=== PATIENT | male | born 1950 | race Caucasian/White ===

== ENCOUNTER 2016-12-02 17:44 | Emergency (ER) | payer MEDICARE, OTHER ==
[2016-12-02] MEDS ORDERED: Midazolam 1 MG/ML 2 ML SDV IVPUSH ONE (19:36)
[2016-12-02] MEDS ORDERED: Iopamidol 755 Mg/ML 100 ML Bottle IV SCH (19:45)
[2016-12-02] MEDS ORDERED: Sodium Chloride 0.9% 80 ML IV SCH (19:45)
[2016-12-02] MEDS ORDERED: diphenhydrAMINE 50 MG/ML SDV IVPUSH ONE ×2 (19:47→23:00)
[2016-12-02] MEDS ORDERED: WATER IV ONE ×2 (19:56)
[2016-12-02] MEDS ORDERED: METHYLPREDNISOLONE SOD SUCC IV ONE ×2 (19:56)
[2016-12-02] MEDS ORDERED: DEXTROSE 5% IV ONE ×2 (19:56)
[2016-12-02] MEDS ORDERED: methylPREDNISolone Sodium Succinate 40 MG/1 ML SDV ONE (20:07)
[2016-12-02] MEDS ORDERED: Dextrose 5% in Water 250 ML ONE (20:07)
[2016-12-02] MEDS ORDERED: methylPREDNISolone Sodium Succinate 40 MG/1 ML SDV IVPUSH ONE (20:19)
[2016-12-02] MEDS: Sodium Chloride 0.9% 10 ML Syringe FLUSH PRN ×2 (20:29→23:35)
[2016-12-03] MEDS ORDERED: Lactated Ringers 1,000 ML IV SCH
[2016-12-03] MEDS ORDERED: Sodium Chloride 0.9% 100 ML IV STA (00:28)
[2016-12-03] MEDS ORDERED: Iopamidol 755 Mg/ML 100 ML Bottle IV STA (00:28)
[2016-12-03] MEDS ORDERED: Aspirin 81 MG Tab.Chew PO ONE (01:09)
[2016-12-03] MEDS ORDERED: Nitroglycerin/D5W 25 MG/250 ML BOTTLE IV SCH (01:15)
[2016-12-03] MEDS: Nitroglycerin/D5W 25 MG/250 ML BOTTLE ONE ×2 (01:20→01:28)
[2016-12-03] MEDS ORDERED: Pantoprazole 40 MG Vial IVPUSH ONE (01:36)
--- NOTE | 2016-12-03 01:55 | EDM.PDOC ---
ED HPI GENERAL MEDICAL PROBLEM - General Chief Complaint: Respiratory Problem Stated Complaint: GASPING FOR AIR, BALANCE IS BAD Time Seen by Provider: 12/02/16 18:30 Source of Information: Reports: Patient History Limitations: Reports: No Limitations - History of Present Illness INITIAL COMMENTS - FREE TEXT/NARRATIVE: History of present illness: [66-year-old male whose presenting with a history of coronary disease cardiac bypass in the past and stenting for 5 years ago at [facility] in [place]. Today he was mowing the lawn and then setting to shortness of breath and went into the garage and he saw Some dogs running around in the garage but there weren't any and he was aware of this so he was having visual hallucinations. He had a sleep study last night due to having trouble sleeping at night for the last couple of months he does not know the results of that sleep study he is already has a history of obstructive sleep apnea and is on BiPAP at night. He is not having any chest pain with this he is having nausea as shortness of breath he has some weakness and some inability to stand and the visual hallucinations no diaphoresis. With his prior coronary events he did not have any chest pain either.] Review of systems: As per history of present illness and below otherwise all systems reviewed and negative. Past medical history: As per history of present illness and as reviewed below otherwise noncontributory. Surgical history: As per history of present illness and as reviewed below otherwise noncontributory. Social history: No reported history of drug or alcohol abuse. Family history: As per history of present illness and as reviewed below otherwise noncontributory. Physical exam: HEENT: Atraumatic, normocephalic, pupils reactive, negative for conjunctival pallor or scleral icterus, mucous membranes moist, throat clear, neck supple, nontender, trachea midline. Lungs: Clear to auscultation, breath sounds equal bilaterally, chest nontender. Heart: S1S2, regular, negative for clicks, rubs, or JVD. Abdomen: Soft, nondistended, nontender. Negative for masses or hepatosplenomegaly. Negative for costovertebral tenderness. Pelvis: Stable nontender. Genitourinary: Deferred. Rectal: Deferred. Extremities: Atraumatic, negative for cords or calf pain. Neurovascular unremarkable. Neuro: Awake, alert, oriented. Cranial nerves II through XII unremarkable. Cerebellum unremarkable. Motor and sensory unremarkable throughout. Exam nonfocal. Diagnostics: [He's had 2 EKGs which show progression of ST depression in the lateral leads especially V4 V5 and V6 the second EKG done about 34 hours apart shows definite progression. 2 sets of cardiac enzymes that showed negative he had an elevated d -dimer and an elevated proBNP but he has also had a CT angiogram which ruled out pulmonary embolism. So our working diagnosis is unstable angina or coronary artery syndrome.] Therapeutics: [We started an IV nitro drip due to the EKG changes would also due to his hypertension we have given him 4 baby aspirin he is on Plavix every 75 mg a day] Impression: [Acute coronary syndrome] Plan: [Transferring him to [place] the hospitalist there is excepting he is going to and in intermediate stepdown unit.] Definitive disposition and diagnosis as appropriate pending reevaluation and review of above. - Related Data Allergies Allergy/AdvReac Type Severity Reaction Status Date / Time amoxicillin [From Augmentin] Allergy Swelling Verified 12/02/16 18:02 clavulanic acid Allergy Swelling Verified 12/02/16 18:02 [From Augmentin] Iodinated Contrast- Oral and Allergy Itching Verified 12/02/16 18:02 IV Dye Penicillins Allergy Itching Verified 12/02/16 18:02 Home Meds: Home Meds Clopidogrel [Plavix] 12/02/16 [History] Lisinopril [Lisinopril] 12/02/16 [History] Metoprolol Tartrate [Metoprolol Tartrate] 12/02/16 [History] Pantoprazole [ProTONIX] 12/02/16 [History] atorvaSTATin [Lipitor] 12/02/16 [History] Past Medical History Musculoskeletal History: Reports: Back Pain, Chronic, Neck Pain, Chronic - Past Surgical History HEENT Surgical History: Reports: Tonsillectomy Cardiovascular Surgical History: Reports: Coronary Artery Bypass, Coronary Artery Stent GI Surgical History: Reports: Bariatric Procedure Musculoskeletal Surgical History: Reports: Arthroscopic Knee, Arthroscopic Procedure, Knee Replacement, Shoulder Surgery Social & Family History - Tobacco Use Smoking Status *Q: Never Smoker ED ROS GENERAL - Review of Systems Review Of Systems: ROS reveals no pertinent complaints other than HPI. ED EXAM, GENERAL - Physical Exam Exam: See Below Course - Vital Signs Last Recorded V/S: Last Vital Signs Temp 37.1 C 12/03/16 00:55 Pulse 105 H 12/03/16 00:55 Resp 20 12/03/16 00:55 BP 160/142 H 12/03/16 01:28 Pulse Ox 94 L 12/03/16 00:55 - Orders/Labs/Meds Orders: Active Orders 24 hr Category Date Time Status EKG Documentation Completion [RC] ASDIRECTED Care 12/02/16 18:39 Active EKG Documentation Completion [RC] ASDIRECTED Care 12/03/16 00:40 Active Ang Chest [CT] Stat Exams 12/03/16 00:01 Taken Chest 2V [CR] Stat Exams 12/02/16 18:38 Taken Lactated Ringers [Ringers, Lactated] 1,000 ml Med 12/03/16 00:00 Active IV ASDIRECTED Nitroglycerin/D5W [Nitroglycerin 25 MG/D5W 250 ML] Med 12/03/16 01:15 Active 25 mg in 250 ml IV TITRATE Sodium Chloride 0.9% [Saline Flush] Med 12/02/16 19:45 Ordered 10 ml FLUSH ASDIRECTED PRN Nasogastric Orogastric Tube Insertion [OM.PC] Routine Oth 12/02/16 19:33 Ordered EKG 12 Lead [EK] Stat Ther 12/02/16 18:38 Ordered EKG 12 Lead [EK] Stat Ther 12/03/16 00:40 Ordered Medication Orders Lactated Ringer's (Ringers, Lactated) 1,000 mls @ 300 mls/hr IV ASDIRECTED MARTINA Last Admin: 12/03/16 00:10 Dose: 300 mls/hr Nitroglycerin/Dextrose (Nitroglycerin 25 Mg/D5w 250 Ml) 25 mg in 250 mls @ 6 mls/hr IV TITRATE MARTINA; 10 MCG/MIN PRN Reason: Protocol Last Admin: 12/03/16 01:27 Dose: 10 mcg/min, 6 mls/hr Sodium Chloride (Saline Flush) 10 ml FLUSH ASDIRECTED PRN PRN Reason: Keep Vein Open Last Admin: 12/02/16 23:35 Dose: 10 ml Admin: 12/02/16 20:29 Dose: 10 ml Labs: Laboratory Tests 12/02/16 12/02/16 12/02/16 Range/Units 18:39 18:39 18:39 WBC 8.0 (4.5-11.0) K/uL RBC 4.29 L (4.30-5.90) M/uL Hgb 13.8 (12.0-15.0) g/dL Hct 40.7 (40.0-54.0) % MCV 95 (80-98) fL MCH 32 H (27-31) pg MCHC 34 (32-36) % Plt Count 160 (150-400) K/uL Neut % (Auto) 63 (36-66) % Lymph % (Auto) 21 L (24-44) % [place] % (Auto) 16 H (2-6) % Eos % (Auto) 0 L (2-4) % Baso % (Auto) 0 (0-1) % D-Dimer, Quantitative 1540 H (0.0-400.0) ng/mL Sodium 133 L (140-148) mmol/L Potassium 3.5 L (3.6-5.2) mmol/L Chloride 93 L (100-108) mmol/L Carbon Dioxide 27 (21-32) mmol/L Anion Gap 16.5 H (5.0-14.0) mmol/L BUN 13 (7-18) mg/dL Creatinine 0.9 (0.8-1.3) mg/dL Est Cr Clr Drug Dosing 95.18 mL/min Estimated GFR (MDRD) > 60 (>60) Glucose 129 H (74-106) mg/dL Calcium 9.1 (8.5-10.1) mg/dL Total Bilirubin 2.0 H (0.2-1.0) mg/dL AST 68 H (15-37) U/L ALT 43 (12-78) U/L Alkaline Phosphatase 87 (46-116) U/L Troponin I 0.027 (0.000-0.056) ng/mL Eut-I-Tyymobagdos Pept (5-125) pg/mL Total Protein 8.1 (6.4-8.2) g/dL Albumin 4.0 (3.4-5.0) g/dL Globulin 4.1 H (2.3-3.5) g/dL Albumin/Globulin Ratio 1.0 L (1.2-2.2) TSH, Ultra Sensitive (0.358-3.740) uIU/mL 12/02/16 12/03/16 Range/Units 18:39 00:40 WBC (4.5-11.0) K/uL RBC (4.30-5.90) M/uL Hgb (12.0-15.0) g/dL Hct (40.0-54.0) % MCV (80-98) fL MCH (27-31) pg MCHC (32-36) % Plt Count (150-400) K/uL Neut % (Auto) (36-66) % Lymph % (Auto) (24-44) % [place] % (Auto) (2-6) % Eos % (Auto) (2-4) % Baso % (Auto) (0-1) % D-Dimer, Quantitative (0.0-400.0) ng/mL Sodium (140-148) mmol/L Potassium (3.6-5.2) mmol/L Chloride (100-108) mmol/L Carbon Dioxide (21-32) mmol/L Anion Gap (5.0-14.0) mmol/L BUN (7-18) mg/dL Creatinine (0.8-1.3) mg/dL Est Cr Clr Drug Dosing mL/min Estimated GFR (MDRD) (>60) Glucose (74-106) mg/dL Calcium (8.5-10.1) mg/dL Total Bilirubin (0.2-1.0) mg/dL AST (15-37) U/L ALT (12-78) U/L Alkaline Phosphatase (46-116) U/L Troponin I < 0.017 (0.000-0.056) ng/mL Dwg-[id number] Pept 1894 H (5-125) pg/mL Total Protein (6.4-8.2) g/dL Albumin (3.4-5.0) g/dL Globulin (2.3-3.5) g/dL Albumin/Globulin Ratio (1.2-2.2) TSH, Ultra Sensitive 1.990 (0.358-3.740) uIU/mL Meds: Medications Generic Name Dose Route Start Last Admin Trade Name Freq PRN Reason Stop Dose Admin Lactated Ringer's 1,000 mls @ 300 mls/hr 12/03/16 00:00 12/03/16 00:10 Ringers, Lactated IV 300 mls/hr ASDIRECTED MARTINA Administration Nitroglycerin/Dextrose 25 mg in 250 mls @ 6 mls/hr 12/03/16 01:15 12/03/16 01 :27 Nitroglycerin 25 Mg/D5w 250 Ml IV 10 mcg/min TITRATE MARTINA 6 mls/hr Protocol Administration 10 MCG/MIN Sodium Chloride 10 ml 12/02/16 19:45 12/02/16 23:35 Saline Flush FLUSH 10 ml ASDIRECTED PRN Administration Keep Vein Open Discontinued Medications Generic Name Dose Route Start Last Admin Trade Name Freq PRN Reason Stop Dose Admin Aspirin 324 mg 12/03/16 01:09 12/03/16 01:13 Aspirin PO 12/03/16 01:10 324 mg ONETIME ONE Administration Diphenhydramine HCl 50 mg 12/02/16 19:47 12/02/16 20:30 Benadryl IVPUSH 12/02/16 19:48 Not Given ONETIME ONE Diphenhydramine HCl 50 mg 12/02/16 23:00 12/02/16 23:31 Benadryl IVPUSH 12/02/16 23:01 50 mg ONETIME ONE Administration Methylprednisolone Sodium 100.64 mls @ 200 mls/hr 12/02/16 19:56 12/02/16 20: 30 Succinate 40 mg/ Dextrose/ IV 12/02/16 20:27 Not Given Water ONETIME ONE Dextrose/Water Confirm 12/02/16 20:07 12/02/16 20:22 Dextrose 5% In Water Administered 12/02/16 20:08 Not Given Dose 250 mls @ as directed .ROUTE .STK-MED ONE Sodium Chloride 100 mls @ 4 mls/sec 12/03/16 00:28 12/03/16 00:40 Normal Saline IV 12/03/16 00:29 4 mls/sec ASDIRECTED STA Administration Nitroglycerin/Dextrose Confirm 12/03/16 01:21 12/03/16 01:28 Nitroglycerin 25 Mg/D5w 250 Ml Administered 12/03/16 01:22 25 mg Dose Administration 25 mg in 250 mls @ as directed .ROUTE .STK-MED ONE Iopamidol 100 ml 12/03/16 00:28 12/03/16 00:40 Isovue-370 (76%) IV 12/03/16 00:29 100 ml . DIRECTED STA Administration Methylprednisolone Sodium Succinate Confirm 12/02/16 20:07 12/02/16 20:22 Solu-Medrol Administered 12/02/16 20:08 Not Given Dose 40 mg .ROUTE .STK-MED ONE Methylprednisolone Sodium Succinate 40 mg 12/02/16 20:19 12/02/16 20:25 Solu-Medrol IVPUSH 12/02/16 20:20 40 mg ONETIME ONE Administration Midazolam HCl 2 mg 12/02/16 19:36 12/02/16 22:46 Versed 1 Mg/Ml IVPUSH 12/02/16 19:37 Not Given ONETIME ONE Pantoprazole Sodium 40 mg 12/03/16 21:00 Protonix Iv IVPUSH BEDTIME MARTINA Pantoprazole Sodium 40 mg 12/03/16 01:36 12/03/16 01:48 Protonix Iv IVPUSH 12/03/16 01:37 40 mg ONETIME ONE Administration Departure - Departure Time of Disposition: 01:54 Disposition: DC/Tfer to Acute Hospital 02 Condition: Good Clinical Impression: Acute coronary syndrome - Discharge Information Forms: ED Department Discharge - My Orders Last 24 Hours: My Active Orders 12/02/16 18:38 Chest 2V [CR] Stat EKG 12 Lead [EK] Stat 12/02/16 18:39 EKG Documentation Completion [RC] ASDIRECTED 12/02/16 19:33 Nasogastric Orogastric Tube Insertion [OM.PC] Routine 12/02/16 19:45 Sodium Chloride 0.9% [Saline Flush] 10 ml FLUSH ASDIRECTED PRN 12/03/16 00:00 Lactated Ringers [Ringers, Lactated] 1,000 ml IV ASDIRECTED 12/03/16 00:01 Ang Chest [CT] Stat 12/03/16 00:40 EKG Documentation Completion [RC] ASDIRECTED EKG 12 Lead [EK] Stat 12/03/16 01:15 Nitroglycerin/D5W [Nitroglycerin 25 MG/D5W 250 ML] 25 mg in 250 ml IV TITRATE - Assessment/Plan Last 24 Hours: My Active Orders 12/02/16 18:38 Chest 2V [CR] Stat EKG 12 Lead [EK] Stat 12/02/16 18:39 EKG Documentation Completion [RC] ASDIRECTED 12/02/16 19:33 Nasogastric Orogastric Tube Insertion [OM.PC] Routine 12/02/16 19:45 Sodium Chloride 0.9% [Saline Flush] 10 ml FLUSH ASDIRECTED PRN 12/03/16 00:00 Lactated Ringers [Ringers, Lactated] 1,000 ml IV ASDIRECTED 12/03/16 00:01 Ang Chest [CT] Stat 12/03/16 00:40 EKG Documentation Completion [RC] ASDIRECTED EKG 12 Lead [EK] Stat 12/03/16 01:15 Nitroglycerin/D5W [Nitroglycerin 25 MG/D5W 250 ML] 25 mg in 250 ml IV TITRATE
[2016-12-03] MEDS ORDERED: Labetalol 20 MG/4 ML Syringe IVPUSH ONE (02:05)
[2016-12-03] MEDS ORDERED: Labetalol 20 MG/4 ML Syringe ONE (02:14)
[2016-12-03] MEDS ORDERED: Labetalol 100 MG in Sodium Chloride 0.9% 80 ML IV SCH (02:15)
[2016-12-03] MEDS ORDERED: LORazepam 2 MG/ML MDV IVPUSH ONE (02:22)
[2016-12-03 03:36] VITALS: BP 148/104
--- NOTE | 2016-12-03 08:51 | CR ---
Chest 2V HISTORY: SOB COMPARISON: None FINDINGS: Lungs appear clear and normally aerated. Cardiomediastinal silhouette is within normal limits. No va scular redistribution or pleural fluid can be seen. Anterior plate and screw fusion is noted lower c ervical spine. Anterolateral osteophytes are noted along the thoracic spine. Bony structures and sof t tissues are unremarkable. IMPRESSION: No acute chest abnormality identified. Degenerative changes thoracic spine. Old anterior fusion [place] ges lower cervical spine.
[2016-12-03] MEDS ORDERED: Pantoprazole 40 MG Vial IVPUSH SCH (21:00)
== END 2016-12-03 02:53 ==
LOC: JP.ED 17:44
DX: I24.9 Acute ischemic heart disease, unspecified (principal); Z95.5 Presence of coronary angioplasty implant and graft; Z98.890 Other specified postprocedural states; Z79.899 Other long term (current) drug therapy; Z88.1 Allergy status to other antibiotic agents; Z88.0 Allergy status to penicillin; Z91.041 Radiographic dye allergy status; Z95.1 Presence of aortocoronary bypass graft
CPT/HCPCS: 36415; 71020; 71275; 80053; 83880; 84443; 84484; 85025; 85379; 93005; 96361; 96374; 96375; 99285; A9270; C9113; J1200; J2060; J2920; J7030; J7050; J7120; Q9967; 93010

== ENCOUNTER 2019-08-30 07:38 | Day surgery (SDC) | payer MEDICARE, OTHER ==
[~2019-08-30 07:38] MED LIST: Dextrose 5%-Lactated Ringers 1,000 ML IV SCH; Midazolam 1 MG/ML 2 ML SDV ONE; Propofol 200 MG/20 ML SDV ONE; fentaNYL 100 MCG/2 ML SDV ONE
[2019-08-30] MEDS ORDERED: Isosorbide Mononitrate 30 MG Tab.ER PO ONE (08:06)
[2019-08-30 11:05] VITALS: PULSE 50
[2019-08-30 11:06] VITALS: BP 143/69
--- NOTE | 2019-09-04 13:56 | OR ---
DATE OF PROCEDURE: 08/30/2019 SURGEON: Hernandez Wiseman MD PREOPERATIVE DIAGNOSIS: Family history of colon carcinoma. POSTOPERATIVE DIAGNOSES: 1. Family history of colon carcinoma. 2. Normal colonoscopic examination. OPERATIVE PROCEDURE: Flexible colonoscopy. ANESTHESIA: IV sedation. INDICATIONS FOR PROCEDURE: A 69-year-old male presenting for a screening colonoscopy. He does have history of his mother having a colon carcinoma. Plan is to proceed with a colonoscopy with biopsies and/or polypectomy as indicated. Potential risks including bleeding and perforation were discussed, and the patient wishes to proceed. DETAILS OF PROCEDURE: The patient was taken to the operating room and placed in a left lateral decubitus position. IV sedation was administered, after which the initial digital rectal exam was performed which was unremarkable. Colonoscope was then passed into the rectum with retroflexion revealing uncomplicated hemorrhoidal columns. Scope was eventually passed to the level of the cecum. The prep was fairly good with some liquid stool present obscured small areas of the mucosa. Otherwise, there was no evident pathology. Specifically, no diverticula. No areas of colitis. No polyps or other signs of neoplasia. Scope was then withdrawn, the above findings reconfirmed. Procedure was concluded. The patient was taken to the recovery room in satisfactory condition. Given the family history of colon carcinoma, the next colonoscopy should be set up in 4 to 5 years. Hernandez Wiseman MD /[id number]
== END 2019-08-30 11:22 | disposition home or self-care (01) ==
LOC: JP.SDS 07:38
PROVIDERS: ATTEND Surgery
DX: Z12.11 Encounter for screening for malignant neoplasm of colon (principal); K64.9 Unspecified hemorrhoids; G47.33 Obstructive sleep apnea (adult) (pediatric); K21.9 Gastro-esophageal reflux disease without esophagitis; Z98.890 Other specified postprocedural states; Z80.0 Family history of malignant neoplasm of digestive organs; Z99.89 Dependence on other enabling machines and devices
CPT/HCPCS: J2250; J2704; J3010; J7121

== ENCOUNTER 2022-04-20 11:04 | Inpatient (IN) | payer MEDICARE ==
[2022-04-20] MEDS ORDERED: Sodium Chloride 0.9% 10 ML Syringe FLUSH PRN (12:00)
[2022-04-20] MEDS ORDERED: HYDROmorphone 1 MG/ML Syringe IVPUSH ONE (12:01)
[2022-04-20] MEDS ORDERED: methylPREDNISolone Sodium Succinate 125 MG/2 ML SDV IVPUSH ONE (12:02)
[2022-04-20 12:46] LABS: ESTIMATED GFR 80 mL/min (>60)
[2022-04-20] MEDS ORDERED: HYDROmorphone 0.5 MG/0.5 ML Syringe IVPUSH ONE (13:16)
[2022-04-20] MEDS ORDERED: Ondansetron 4 MG/2 ML SDV IV PRN ×2 (13:23→15:25)
[2022-04-20] MEDS ORDERED: Sodium Chloride 0.9% 1,000 ML IV SCH ×3 (13:30→20:45)
[2022-04-20] MEDS ORDERED: Sodium Chloride 0.9% 1,000 ML IV ONE (14:00)
[2022-04-20] MEDS ORDERED: Morphine 2 MG/ML SYRINGE IVPUSH PRN (15:25)
[2022-04-20] MEDS ORDERED: Acetaminophen 325 MG Tab PO PRN (15:25)
[2022-04-20] MEDS ORDERED: Diclofenac Sodium 1% Gel 100 GM Tube TOP PRN (15:43)
[2022-04-20] MEDS ORDERED: Ipratropium 0.03% Nasal Spray 30 ML Bot NAS PRN (15:43)
[2022-04-20] MEDS ORDERED: Nitroglycerin 0.4 MG Tab.SL SL SCH (15:45)
[2022-04-20] MEDS: Acetaminophen/oxyCODONE 325-5 MG Tab PO PRN (16:13)
[2022-04-20] MEDS: Meropenem 1 GM in Sodium Chloride 0.9% 100 ML IV SCH ×2 (16:15→23:50)
[2022-04-20] MEDS: Clindamycin in 0.9 % Sod Chlor 600 MG in Premix Bag 1 BAG IV SCH ×2 (19:49)
[2022-04-20] MEDS: Docusate Sodium 100 MG Cap PO PRN (20:32)
[2022-04-20] MEDS: Metoprolol Tartrate 50 MG Tab PO SCH (20:33)
[2022-04-20] MEDS: Celecoxib 100 MG Cap PO SCH (20:42)
[2022-04-20] MEDS ORDERED: Gabapentin 300 MG Cap PO SCH (21:00)
[2022-04-20] MEDS ORDERED: Pantoprazole 40 MG Tab.CR PO SCH (21:00)
[2022-04-20] MEDS ORDERED: atorvaSTATin 20 MG Tab PO SCH (21:00)
[2022-04-20] MEDS: Sodium Chloride 0.9% 1,000 ML IV SCH (23:50)
[2022-04-21] MEDS: Clindamycin in 0.9 % Sod Chlor 600 MG in Premix Bag 1 BAG IV SCH ×6 (01:52→14:08)
[2022-04-21] MEDS: Sodium Chloride 0.9% 1,000 ML IV SCH ×2 (03:45→12:37)
[2022-04-21] MEDS: Acetaminophen/oxyCODONE 325-5 MG Tab PO PRN ×4 (05:46→18:59)
[2022-04-21] MEDS ORDERED: Folic Acid 1 MG Tab PO SCH (09:00)
[2022-04-21] MEDS ORDERED: Lisinopril 20 MG Tab PO SCH (09:00)
[2022-04-21] MEDS ORDERED: Clopidogrel 75 MG Tab PO SCH (09:00)
[2022-04-21] MEDS ORDERED: Cyanocobalamin (Vitamin B12) 1,000 MCG Tab SL SCH (09:00)
[2022-04-21] MEDS ORDERED: DULoxetine 30 MG Cap PO SCH (09:00)
[2022-04-21] MEDS ORDERED: Cholecalciferol (Vitamin D3) 25 MCG Tab PO SCH (09:00)
[2022-04-21] MEDS ORDERED: Aspirin 81 MG Tab.EC PO SCH (09:00)
[2022-04-21] MEDS ORDERED: Enoxaparin 40 MG/0.4 ML Syringe SUBCUT SCH ×2 (09:00)
[2022-04-21] MEDS ORDERED: Isosorbide Mononitrate 30 MG Tab.ER PO SCH (09:00)
[2022-04-21] MEDS ORDERED: Vitamin B Complex Tab PO SCH (09:00)
[2022-04-21] MEDS: Pantoprazole 40 MG Tab.CR PO SCH ×2 (09:21→16:19)
[2022-04-21] MEDS: Celecoxib 100 MG Cap PO SCH (09:21)
[2022-04-21] MEDS: Gabapentin 300 MG Cap PO SCH ×2 (09:22→12:39)
[2022-04-21] MEDS: Meropenem 1 GM in Sodium Chloride 0.9% 100 ML IV SCH ×2 (09:26→16:19)
[2022-04-21] MEDS ORDERED: Sodium Chloride 0.9% 1,000 ML IV SCH (10:00)
[2022-04-21] MEDS: Docusate Sodium 100 MG Cap PO PRN (10:08)
[2022-04-21] MEDS: Metoprolol Tartrate 50 MG Tab PO SCH (10:27)
[2022-04-21 16:17] VITALS: BP 107/65; PULSE 57
[2022-04-24] MEDS ORDERED: Methotrexate 2.5 MG Tab PO SCH (09:00)
== END 2022-04-21 19:24 | DRG 872 ==
LOC: JP.ED 11:04 → JP.MS 13:24
PROVIDERS: ADMIT Family Medicine; ATTEND Hospitalist
DX: A41.9 Sepsis, unspecified organism (principal); L03.114 Cellulitis of left upper limb; D84.9 Immunodeficiency, unspecified; I10 Essential (primary) hypertension; M06.9 Rheumatoid arthritis, unspecified; E78.5 Hyperlipidemia, unspecified; I25.10 Atherosclerotic heart disease of native coronary artery without angina pectoris; E11.9 Type 2 diabetes mellitus without complications; G47.33 Obstructive sleep apnea (adult) (pediatric); Z20.822 Contact with and (suspected) exposure to COVID-19; H91.90 Unspecified hearing loss, unspecified ear; Z79.899 Other long term (current) drug therapy; H54.7 Unspecified visual loss; E78.00 Pure hypercholesterolemia, unspecified; M19.90 Unspecified osteoarthritis, unspecified site; G89.29 Other chronic pain; M54.9 Dorsalgia, unspecified; E66.9 Obesity, unspecified; Z90.89 Acquired absence of other organs; Z86.19 Personal history of other infectious and parasitic diseases; Z95.1 Presence of aortocoronary bypass graft; Z86.14 Personal history of Methicillin resistant Staphylococcus aureus infection; Z95.5 Presence of coronary angioplasty implant and graft; Z79.01 Long term (current) use of anticoagulants; Z79.82 Long term (current) use of aspirin; I25.2 Old myocardial infarction; Z79.02 Long term (current) use of antithrombotics/antiplatelets; Z88.1 Allergy status to other antibiotic agents; Z91.041 Radiographic dye allergy status; Z88.0 Allergy status to penicillin; Z98.1 Arthrodesis status; Z87.891 Personal history of nicotine dependence; I95.9 Hypotension, unspecified; Z68.38 Body mass index [BMI] 38.0-38.9, adult
CPT/HCPCS: 36415; 73070-26-LT; 73070-LT; 73110-26-LT; 73110-LT; 73200-LT; 80048; 80053; 82947; 85025; 86140; 87040; 87070; 87205; A9270-GY; J1170; J1650; J2185; J2930; J3490; J7030; U0002

== ENCOUNTER 2023-02-24 11:42 | Emergency (ER) | payer OTHER, MEDICARE ==
[2023-02-24] MEDS ORDERED: fentaNYL 50 MCG/ML SDV IVPUSH ONE ×2 (11:53→13:02)
[2023-02-24] MEDS ORDERED: Naloxone 0.4 MG/ML SDV IVPUSH PRN (11:53)
[2023-02-24] MEDS ORDERED: Sodium Chloride 0.9% 10 ML Syringe FLUSH PRN (12:00)
[2023-02-24 12:05] LABS: BASOPHILS ABSOLUTE AUTO 0.03 K/uL (0.00-0.10); BASOPHILS PERCENT AUTO 0.3 % (0.1-1.3); EOSINOPHILS PERCENT AUTO 1.1 % (0.0-5.4); HEMATOCRIT 33.5 % (38.4-49.7); HEMOGLOBIN 11.1 g/dL (12.9-16.9); IMMATURE GRAN ABSOLUTE AUTO 0.08 K/uL (0.00-0.23); IMMATURE GRAN PERCENT AUTO 0.9 % (0.0-0.7); LYMPHOCYTES ABSOLUTE AUTO 1.42 K/uL (0.8-3.3); MEAN CORPUSCULAR HEMOGLOBIN 30.7 pg (31.6-35.5); MEAN CORPUSCULAR HGB CONC 33.1 g/dL (31.6-35.5); MEAN CORPUSCULAR VOLUME 92.5 fL (81.4-99.0); MONOCYTES ABSOLUTE AUTO 0.65 K/uL (0.20-0.90); MONOCYTES PERCENT AUTO 7.3 % (3.3-12.6); NEUTROPHILS PERCENT AUTO 74.4 % (40.0-78.1); PLATELET COUNT,PLT 235 K/uL (130-375); RED BLOOD CELL COUNT 3.62 M/uL (4.14-5.76); WHITE BLOOD CELL COUNT,WBC 8.9 K/uL (3.2-11.0)
[2023-02-24 12:16] LABS: BLOOD UREA NITROGEN,BUN 11 mg/dL (7-18); CALCIUM 8.5 mg/dL (8.5-10.1); CARBON DIOXIDE,CO2 29 mmol/L (21-32); CHLORIDE,CL 101 mmol/L (100-108); CREATININE 0.8 mg/dL (0.8-1.3); ESTIMATED GFR 94 mL/min (>60); GLUCOSE RANDOM 131 mg/dL (74-106); POTASSIUM,K 4.4 mmol/L (3.6-5.2); SODIUM,NA 138 mmol/L (140-148)
[2023-02-24 12:21] LABS: PROTHROMBIN TIME 10.6 sec (9.2-10.6); PTT,PARTIAL THROMBOPLSTIN TIME 25.2 sec (21.8-27.3)
[2023-02-24 12:22] LABS: ANION GAP 12.4 mmol/L (5.0-14.0)
[2023-02-24 12:57] VITALS: BP 143/87; PULSE 55
[2023-02-24] MEDS ORDERED: niCARdipine HCl 25 MG in Sodium Chloride 0.9% 240 ML IV SCH (13:00)
[2023-02-24] MEDS ORDERED: levETIRAcetam 500 MG in Sodium Chloride 0.9% 100 ML IV ONE (13:22)
[2023-02-24] MEDS ORDERED: Desmopressin 20 MCG in Sodium Chloride 0.9% 50 ML IV ONE (13:23)
[2023-02-24] MEDS ORDERED: Tranexamic Acid 1,000 MG/10 ML Vial IVPUSH ONE (13:24)
== END 2023-02-24 14:04 ==
LOC: JP.ED 11:42
DX: S06.6X1A Traumatic subarachnoid hemorrhage with loss of consciousness of 30 minutes or less, initial encounter (principal); S82.841A Displaced bimalleolar fracture of right lower leg, initial encounter for closed fracture; S22.31XA Fracture of one rib, right side, initial encounter for closed fracture; S91.001A Unspecified open wound, right ankle, initial encounter; S51.011A Laceration without foreign body of right elbow, initial encounter; I25.10 Atherosclerotic heart disease of native coronary artery without angina pectoris; M06.9 Rheumatoid arthritis, unspecified; E11.69 Type 2 diabetes mellitus with other specified complication; G47.33 Obstructive sleep apnea (adult) (pediatric); D64.9 Anemia, unspecified; E66.9 Obesity, unspecified; Z79.4 Long term (current) use of insulin; Z68.37 Body mass index [BMI] 37.0-37.9, adult; Z95.1 Presence of aortocoronary bypass graft; V86.99XA Unspecified occupant of other special all-terrain or other off-road motor vehicle injured in nontraffic accident, initial encounter; Y92.410 Unspecified street and highway as the place of occurrence of the external cause
CPT/HCPCS: 29515; 36415; 70450; 71250; 72125; 73610; 76377; 80048; 83605; 85025; 85610; 85730; 96365; 96368; 96375; 99285; J1953; J2597; J3010; J3490; J7050